=== PATIENT | female | born 1960 | race Caucasian/White ===

== ENCOUNTER 2017-11-07 13:11 | Emergency (ER) | payer MEDICAID ==
[~2017-11-07] VITALS: Ht 180.3 cm; Wt 152.2 kg
[2017-11-07 13:19] VITALS: BP 144/83
[2017-11-07] MEDS ORDERED: IBUPROFEN 200 MG TABLET PO ONE ×2 (14:00→15:30)
[2017-11-07 14:29] LABS: RAPID INFLUENZA A POSITIVE (Negative); RAPID INFLUENZA B Negative (Negative)
== END 2017-11-07 15:23 | disposition home or self-care (01) ==
LOC: ED 15:17
DX: J09.X2 Influenza due to identified novel influenza A virus with other respiratory manifestations (principal); J02.9 Acute pharyngitis, unspecified
CPT/HCPCS: 71046; 87081; 87400; 87880; 99285